=== PATIENT | male | born 1950 | race Caucasian/White ===

== ENCOUNTER 2018-08-09 07:36 | Day surgery (SDC) | payer MEDICARE, OTHER ==
[~2018-08-09] VITALS: Ht 180.3 cm; Wt 120.0 kg
[2018-08-09] MEDS ORDERED: LIPITOR20 MG PO (07:57)
[2018-08-09] MEDS ORDERED: MOBIC15 MG PO (07:57)
[2018-08-09] MEDS ORDERED: ALTACE 5MG5 MG PO (07:57)
[2018-08-09] MEDS ORDERED: ASPIRIN 81M81 MG/TA2 PO (07:58)
[2018-08-09] MEDS ORDERED: FISH OIL 500 M1 EAC1 PO (07:58)
[2018-08-09 08:06] VITALS: BP 125/92; PULSE 84; TEMP 97
[2018-08-09 09:30] VITALS: BP 126/98; PULSE 79; TEMP 96.8
--- NOTE | 2018-08-09 09:30 | NUR ---
PATIENT BACK FROM ENDO SUITE AFTER COLONOSCOPY. PATIENT AWAKE AND ALERT, WALKED TO CHAIR WITH NO ASSISTANCE. WILL GET PATIENT COFFEE, DOES NOT WANT FOOD AT THIS TIME. AT BEDSIDE. VS APPEAR STABLE. WILL CONTINUE TO MONITOR.
[2018-08-09 09:45] VITALS: BP 122/86; PULSE 67
--- NOTE | 2018-08-09 09:45 | NUR ---
PATIENT ALERT AND ORIENTED. NO COMPLAINTS. VS APPEAR STABLE. WILL DISCHARGE PATIENT AFTER DR SEES PATIENT.
[2018-08-09 10:00] VITALS: BP 140/74; PULSE 80
--- NOTE | 2018-08-09 10:00 | NUR ---
PATIENT HAS BEEN SEEN BY DR. GONZALES DISCHARGE PATIENT. NO COMPLAINTS, VS APPEAR STABLE. PATIENT WANTS TO WALK OUT, NO WHEELCHAIR.
== END 2018-08-09 10:09 | disposition home or self-care (01) ==
LOC: SDCO 07:36
DX: Z12.11 Encounter for screening for malignant neoplasm of colon (principal); Z86.010 Personal history of colon polyps; Z87.19 Personal history of other diseases of the digestive system; K57.30 Diverticulosis of large intestine without perforation or abscess without bleeding; K64.0 First degree hemorrhoids; I10 Essential (primary) hypertension; E78.00 Pure hypercholesterolemia, unspecified; Z98.52 Vasectomy status; Z79.82 Long term (current) use of aspirin; Z79.899 Other long term (current) drug therapy
CPT/HCPCS: J2250; J2405; J3010; J7030

== ENCOUNTER → 2019-09-08 | Outpatient (CLI) | payer MEDICARE, OTHER ==
[~2019-09-08] MED LIST: ALTACE 5MG5 MG PO; ASPIRIN 81M81 MG/TA2 PO; FISH OIL 500 M1 EAC1 PO; LIPITOR20 MG PO; MOBIC15 MG PO
== END ==
LOC: ZCOL.LAB 16:18
DX: R22.1 Localized swelling, mass and lump, neck (principal)

== ENCOUNTER → 2021-06-17 | Outpatient (CLI) | payer MEDICARE, OTHER | LOC: COL.RAD 07:14 | DX: I71.2 Thoracic aortic aneurysm, without rupture (principal); I25.10 Atherosclerotic heart disease of native coronary artery without angina pectoris | CPT/HCPCS: Q9967 ==